=== PATIENT | male | born 1960 | race Caucasian/White ===

== ENCOUNTER 2018-07-01 16:53 | Emergency (ER) | payer BC ==
[~2018-07-01] VITALS: Ht 185.4 cm; Wt 91.0 kg
--- NOTE | 2018-07-01 17:24 | NUR ---
PT RECIEVED [facility] FLUIDS [employer] FROM [facility]. AFEBRILE UPON ARRIVAL TO ED, STATES HE TOOK TYLENOL AROUND 9 AM AND MOTRIN AROUND NOON.
[2018-07-01] MEDS ORDERED: IBUPROFEN 200 MG TABLET ONE (17:48)
--- NOTE | 2018-07-01 17:55 | NUR ---
MD AT BEDSIDE, PT GIVEN WATER PER MD REQUEST, PT TOLERATING FLUIDS WITHOUT VOMITING. PT MEDICATED PER EMAR. AGREES TO POC (MEDS, LABS, RECHECK)
[2018-07-01] MEDS ORDERED: IBUPROFEN 200 MG TABLET PO ONE (18:00)
--- NOTE | 2018-07-01 18:20 | NUR ---
LAB AT BEDSIDE
[2018-07-01 18:37] LABS: BASOPHILS # (AUTO) 0.01 x10^3/uL (0-0.1); BASOPHILS % (AUTO) 0 % (0-1); EOSINOPHILS # (AUTO) 0.04 x10^3/uL (0-0.4); EOSINOPHILS % (AUTO) 1 % (1-7); LYMPHOCYTES # (AUTO) 0.41 x10^3/uL (1-3.4); LYMPHOCYTES % (AUTO) 6 % (22-44); MD NO; MEAN CORPUSCULAR HEMOGLOBIN 33.1 pg (27.5-34.5); MEAN CORPUSCULAR HGB CONC 34.9 g/dL (33.2-36.2); MEAN CORPUSCULAR VOLUME 94.9 fL (81-97); MEAN PLATELET VOLUME 8.1 fL (7.4-10.4); MONOCYTES % (AUTO) 8 % (2-9); NEUTROPHILS # (AUTO) 6.22 x10^3/uL (1.8-6.8); NEUTROPHILS % (AUTO) 85 % (42-75); PLATELET COUNT 175 x10^3/uL (130-400); RED BLOOD COUNT 4.48 x10^6/uL (4.38-5.82); RED CELL DISTRIBUTION WIDTH 12.8 % (9.4-14.8)
--- NOTE | 2018-07-01 18:40 | NUR ---
ED SUP AT BEDSIDE FOR PT CALL LIGHT. DENIES ANY NEEDS/CONCERNS.
[2018-07-01 18:44] LABS: ALBUMIN 3.5 g/dL (3.4-5.0); ANION GAP 4 mmol/L (5-15); CALCIUM 7.9 mg/dL (8.5-10.1); CHLORIDE 105 mmol/L (98-107); CREATININE 1.22 mg/dL (0.7-1.3)
[2018-07-01 18:48] LABS: TROPONIN I < 0.015 ng/mL (0.000-0.045)
[2018-07-01 19:09] VITALS: BP 111/87
--- NOTE | 2018-07-01 19:10 | NUR ---
CHART UP FOR RECHECK
--- NOTE | 2018-07-01 19:18 | NUR ---
PT VERBALIZED DESIRE FOR DC, STATES HE WANTS TO GO GET HIS MEDS AND GET HOME. MD NOTIFIED THAT CHART IS UP FOR RECHECK.
--- NOTE | 2018-07-01 19:51 | NUR ---
PT AMBULATED WITHOUT ASSISTANCE UPON DC, ALERT AND ORIENTED X4, GIVEN WHEELCHAIR TO DC PER REQUEST. DENIES ANY NEEDS/CONCERNS UPON DC.
== END 2018-07-01 19:53 | disposition home or self-care (01) ==
LOC: ED 19:47
DX: J09.X2 Influenza due to identified novel influenza A virus with other respiratory manifestations (principal)
CPT/HCPCS: 36415; 80048; 82040; 84484; 85025; 93005; 99284